=== PATIENT | female | born 1970 | race Caucasian/White ===

== ENCOUNTER 2022-03-16 09:57 | Emergency (ER) | payer OTHER | END 2022-03-16 11:27 | disposition home or self-care (01) | LOC: FER 09:57 | DX: S52.612A Displaced fracture of left ulna styloid process, initial encounter for closed fracture (principal); S52.502A Unspecified fracture of the lower end of left radius, initial encounter for closed fracture; W19.XXXA Unspecified fall, initial encounter | CPT/HCPCS: 73090; 73110 ==